=== PATIENT | male | born 1965 | race Asian ===

== ENCOUNTER 2024-06-29 23:32 | Emergency (ER) | payer OTHER ==
[~2024-06-29] VITALS: Ht 170.2 cm; Wt 80.0 kg
[2024-06-29 23:52] VITALS: BP 137/87; PULSE 96; RESP 20; TEMP 98.4; O2SAT 98
[2024-06-30] MEDS ORDERED: GENT5DRO38 EACHEYE (02:45)
[2024-06-30] MEDS ORDERED: DEXT15DR28 EACHEYE (02:45)
== END 2024-06-30 02:59 | disposition home or self-care (01) ==
LOC: ER 23:32
DX: H57.13 Ocular pain, bilateral (principal); I10 Essential (primary) hypertension
CPT/HCPCS: 99283; 99284